=== PATIENT | male | born 1965 | race Caucasian/White ===

== ENCOUNTER 2022-01-30 13:24 | Day surgery (SDC) | payer OTHER ==
[2022-01-30] MEDS ORDERED: XYLOCAINE-MPF 1% 5ML SDV IJ ONE (13:25)
[2022-01-30] MEDS ORDERED: Marcaine Mpf 0.5% Vial 30 Ml IJ ONE (13:25)
[2022-01-30] MEDS ORDERED: Depo-Medrol 40 MG/ML IM ONE (13:25)
--- NOTE | 2022-01-30 17:08 | XRAY ---
Indication: Right shoulder and subacromial bursa injection. Intraoperative fluoroscopy provided for 29 seconds. 2 digital spot images submitted for interpretation demonstrates needle tip projecting over the right glenohumeral joint superiorly. Second needle tip subacromial. Small amount of contrast injected for both needle tip placement. Correlate with intraoperative findings/report.
--- NOTE | 2022-01-30 17:08 | XRAY ---
Indication: Left shoulder and subacromial bursa injection. Intraoperative fluoroscopy provided for 17 seconds. 2 digital spot images submitted for interpretation demonstrates needle tip projecting over the left glenohumeral joint superiorly. Second needle tip subacromial. Small amount of contrast injected for both needle tip placement. Correlate with intraoperative findings/report.
--- NOTE | 2022-01-30 17:43 | XRAY ---
29 seconds of fluoroscopy was used in surgery for a right shoulder intra-articular and subacromial bursa injection.
--- NOTE | 2022-01-30 17:43 | XRAY ---
17 seconds of fluoroscopy was used in surgery for a left shoulder intra-articular and subacromial bursa injection.
== END 2022-01-30 16:10 | disposition home or self-care (01) ==
LOC: SDC-PAIN 13:24
PROVIDERS: ATTEND Psychiatry & Neurology Pain Medicine
DX: M19.09 Primary osteoarthritis, other specified site (principal); M19.011 Primary osteoarthritis, right shoulder; M75.52 Bursitis of left shoulder; M75.51 Bursitis of right shoulder; E11.9 Type 2 diabetes mellitus without complications; Z79.899 Other long term (current) drug therapy
CPT/HCPCS: 20610; 73030; 77002; 82947; J1030; Q9966